=== PATIENT | male | born 1985 | race Caucasian/White ===

== ENCOUNTER 2020-04-27 20:54 | Inpatient (IN) | payer MEDICAID ==
[~2020-04-27] VITALS: Ht 172.7 cm; Wt 86.0 kg
[2020-04-28] MEDS ORDERED: levETIRAcetam 500 MG/5ML INJ IV ONE (00:20)
[2020-04-28] MEDS ORDERED: ONDANSETRON HCL 4 MG/2 ML VIAL IV ONE (02:45)
[2020-04-28] MEDS ORDERED: MORPHINE SULFATE 4 MG/ML SYR/VIAL IV ONE (02:45)
[2020-04-28] MEDS: SODIUM CHLORIDE 0.9% 1,000 ML IV SCH (02:55)
[2020-04-28] MEDS ORDERED: DOCUSATE SOD 100 MG CAP PO PRN (03:00)
[2020-04-28] MEDS ORDERED: ONDANSETRON HCL 4 MG/2 ML VIAL IV PRN (03:00)
[2020-04-28] MEDS ORDERED: LORazepam 0.5 MG TAB PO PRN (03:00)
[2020-04-28] MEDS ORDERED: HYDROcodone-ACET 5/325MG TAB PO PRN (03:00)
[2020-04-28] MEDS ORDERED: TEMAZEPAM 15 MG CAP PO PRN (03:00)
[2020-04-28 04:00] VITALS: BP 131/72
--- NOTE | 2020-04-28 04:00 | NUR ---
MS admit from ER GREY MUELLER admitted to tele/MS after SBAR received. Patient oriented to QI MILES, RN primary RN, unit, room, bed, and unit policies regarding patient care and visiting hours. Patient weighed by bedscale and encouraged to call if they need something. All questions and concerns addressed, patient verbalized understanding. Patient states pain 8/10 right hip fracture. Will medicate per md orders. Will continue to monitor.
[2020-04-28] MEDS: MORPHINE SULF INJ 2 MG/ML SYRINGE 1ML IV PRN ×3 (04:06→20:01)
--- NOTE | 2020-04-28 04:06 | NUR ---
Pain Patient states pain 8/10 on right hip. medicated per md orders. Call light within reach, will continue to monitor and reassess.
[2020-04-28 05:00] VITALS: BP 131/72
[2020-04-28] MEDS ORDERED: LEVE250T18 PO ×2 (05:27)
--- NOTE | 2020-04-28 07:26 | NUR ---
closing note endorsed care to day shift RN no sob or distress note
--- NOTE | 2020-04-28 07:30 | NUR ---
Opening Shift Note: Assumed care of patient. Patient asleep at this time. No S/S of distress/SOB or pain. Bed in lowest locked position, side rails up x 2, call light within reach. Patient instructed on POC and to call for assist PRN, will continue to monitor for changes Q1hr and PRN.
[2020-04-28 08:18] LABS: Basophils # (auto) 0 10 ^3/uL (0-0.2); Basophils % (auto) 0.5 % (0.0-2.0); Eosinophils # (auto) 0.1 10 ^3/uL (0-0.8); Eosinophils % (auto) 1.8 % (0.0-7.0); Hematocrit 41.7 % (41.0-53.0); Hemoglobin 14.3 g/dL (13.5-17.5); Lymphocytes # (auto) 0.8 10 ^3/uL (0.4-5.4); Lymphocytes % (auto) 10.3 % (10.0-50.0); Mean Corpuscular Hemoglobin 30.7 pg (28.0-32.0); Mean Corpuscular Hgb Conc. 34.2 g/dL (32.0-36.0); Mean Corpuscular Volume 89.7 fL (80.0-100.0); Monocytes # (auto) 0.5 10 ^3/uL (0-1.3); Monocytes % (auto) 6.6 % (0.0-12.0); Neutrophils # (auto) 6.5 10 ^3/uL (1.6-8.6); Neutrophils % (auto) 80.8 % (37.0-80.0); Platelet Count (auto) 123 10^3/uL (140-450); Red Blood Cells 4.65 10^6/uL (4.5-5.90); Red Cell Distribution Width 13.5 % (11.8-14.3)
[2020-04-28 08:44] LABS: Calcium 8.1 mg/dL (8.5-10.1); Potassium 3.5 mmol/L (3.5-5.1)
[2020-04-28 08:50] LABS: Albumin 3.2 g/dL (3.4-5.0); Bilirubin, Total 0.8 mg/dL (0.2-1.0); Total Protein 6.3 g/dL (6.4-8.2)
[2020-04-28 09:00] VITALS: BP 128/80
[2020-04-28 09:02] LABS: INR 1.06 (0.9-1.15); Partial Thromboplastin Time 29.3 sec (23.0-31.2)
--- NOTE | 2020-04-28 09:05 | NUR ---
covid swab collected and walked to lab.
[2020-04-28 09:30] LABS: Cholesterol 161 mg/dL (< 200); HDL Cholesterol 45 mg/dL (40-59); LDL Cholesterol 100 mg/dL (< 100); Triglycerides 92 mg/dL (< 150)
[2020-04-28 13:00] VITALS: BP 126/74
--- NOTE | 2020-04-28 18:49 | NUR ---
CLOSING NOTE: Patient resting in bed. No S/S of distress at this time. Care endorsed to NOC RN.
[2020-04-28 22:00] VITALS: BP 105/59
[2020-04-29] MEDS: SODIUM CHLORIDE 0.9% 1,000 ML IV SCH ×3 (01:13→22:42)
--- NOTE | 2020-04-29 03:23 | NUR ---
CHG bath given.
[2020-04-29 05:00] VITALS: BP 114/66
--- NOTE | 2020-04-29 07:30 | NUR ---
Opening note Assumed care of patient from NOC RN. Patient is AOx4 no signs and symptoms of distress or sob noted. Bed is in lowest locked position, call light is within reach, side rails up x2 and seizure precautions in place. Updated patient on plan of care and patient verbalized understanding. Will continue to monitor q1hr and PRN.
[2020-04-29] MEDS ORDERED: BUPIVACAINE 0.25% INJ 50ML VIAL ONE (07:37)
--- NOTE | 2020-04-29 07:55 | NUR ---
Patient off unit patient taken down to OR for procedure.
--- NOTE | 2020-04-29 08:15 | NUR ---
Patient back on unit patient brought back on unit by SCRAP HOIST OPERATORLIAM Rowland. Unable to preform procedure due to fever. Will notify attending MD. Will continue to monitor.
[2020-04-29 09:00] VITALS: BP 122/73
[2020-04-29] MEDS ORDERED: ENOXAPARIN SOD 40 MG/0.4 ML SYRINGE SC ONE (10:30)
--- NOTE | 2020-04-29 12:12 | NUR ---
SPOKE WITH FAMILY Received call from patients mother, Marylin. Her phone number is [phone].
[2020-04-29] MEDS ORDERED: OME20T PO (12:57)
[2020-04-29 13:00] VITALS: BP 122/71
[2020-04-29] MEDS ORDERED: cefTRIAXone 1GM/50ML D5W 50 ML IV ONE (13:00)
[2020-04-29 13:25] LABS: Urine Bacteria NONE SEEN /hpf (None Seen); Urine Blood Negative /uL (Negative); Urine Mucus FEW (None Seen); Urine Specific Gravity 1.031 (1.001-1.035); Urine WBC 3 /hpf (0 - 3)
[2020-04-29] MEDS: levETIRAcetam 500 MG TAB PO SCH ×2 (15:39→21:25)
[2020-04-29 17:00] VITALS: BP 145/91
--- NOTE | 2020-04-29 17:00 | NUR ---
Cooling Measures applied. Patient currently has temp of 103.0 , cooling measures in place. Will continue to monitor.
[2020-04-29] MEDS: ACETAMINOPHEN 325 MG TAB PO PRN (17:38)
--- NOTE | 2020-04-29 18:38 | NUR ---
Temperature reassessment Temperature is now 99.9. Cooling measures in place, will continue to monitor.
--- NOTE | 2020-04-29 19:15 | NUR ---
End of shift note Endorsed care to noc RN. No s/s of distress or SOB noted.
--- NOTE | 2020-04-29 19:30 | NUR ---
Opening Shift Note Assumed care of patient, awake and alert. No S/S of distress/SOB or pain. Instructed on POC and to call for assist PRN, will continue to monitor for changes Q1hr and PRN.
[2020-04-29 22:00] VITALS: BP 121/66
[2020-04-30 05:00] VITALS: BP 138/79
[2020-04-30] MEDS: ACETAMINOPHEN 325 MG TAB PO PRN ×2 (05:24→19:34)
[2020-04-30 09:00] VITALS: BP 107/65
[2020-04-30 09:16] LABS: Basophils # (auto) 0 10 ^3/uL (0-0.2); Basophils % (auto) 0.4 % (0.0-2.0); Eosinophils # (auto) 0.1 10 ^3/uL (0-0.8); Eosinophils % (auto) 1.7 % (0.0-7.0); Hematocrit 34.3 % (41.0-53.0); Hemoglobin 11.8 g/dL (13.5-17.5); Lymphocytes # (auto) 1.3 10 ^3/uL (0.4-5.4); Lymphocytes % (auto) 18.8 % (10.0-50.0); Mean Corpuscular Hemoglobin 30.8 pg (28.0-32.0); Mean Corpuscular Hgb Conc. 34.4 g/dL (32.0-36.0); Mean Corpuscular Volume 89.5 fL (80.0-100.0); Monocytes # (auto) 0.6 10 ^3/uL (0-1.3); Monocytes % (auto) 9.2 % (0.0-12.0); Neutrophils # (auto) 4.8 10 ^3/uL (1.6-8.6); Neutrophils % (auto) 69.9 % (37.0-80.0); Platelet Count (auto) 110 10^3/uL (140-450); Red Blood Cells 3.83 10^6/uL (4.5-5.90); Red Cell Distribution Width 13.1 % (11.8-14.3); White Blood Cell 6.8 10^3/uL (4.4-10.8)
--- NOTE | 2020-04-30 09:30 | NUR ---
IV removal IV DC'd with clean sterile technique, catheter fully intact. Pressure dressing applied to site. Patient tolerated well. NOTE: right hand leaking and painful
[2020-04-30 09:38] LABS: Albumin 2.4 g/dL (3.4-5.0); BUN/Creatinine Ratio 13.6; Calcium 7.7 mg/dL (8.5-10.1); Potassium 3.3 mmol/L (3.5-5.1)
[2020-04-30 09:41] LABS: Bilirubin, Total 0.8 mg/dL (0.2-1.0); Total Protein 5.8 g/dL (6.4-8.2)
--- NOTE | 2020-04-30 09:50 | NUR ---
IV insertion IV access obtained, via clean sterile technique by inserting 22 gauge catheter at left forearm after 1 attempt. IV secured properly. No trauma to site. Patient tolerated well.
[2020-04-30] MEDS ORDERED: POTASSIUM CHLORIDE 20 MEQ, LIDOCAINE 1% (LOCAL ANESTH.) 2 ML in SODIUM CHL 0.9% 100 ML IV ONE (10:00)
[2020-04-30] MEDS ORDERED: POTASSIUM EFFERVESENT TAB 25 MEQ PO ONE (10:00)
[2020-04-30] MEDS ORDERED: ENOXAPARIN SOD 40 MG/0.4 ML SYRINGE SC SCH (10:00)
[2020-04-30] MEDS: cefTRIAXone 1GM/50ML D5W 50 ML IV SCH (10:17)
[2020-04-30] MEDS: levETIRAcetam 500 MG TAB PO SCH ×2 (10:18→21:01)
[2020-04-30] MEDS ORDERED: levoFLOXacin 750MG 150 ML IV ONE (12:30)
[2020-04-30 13:00] VITALS: BP 127/81
[2020-04-30 14:09] LABS: CRP High Sensitivity 16.4 mg/dL (< 0.3)
--- NOTE | 2020-04-30 14:18 | NUR ---
COVID SWAB TAKEN TO LAB
--- NOTE | 2020-04-30 15:11 | NUR ---
SPOKE WITH DR. MARIE OFFICE OKAY TO FEED PATIENT, RESUME NPO STATUS AFTER MIDNIGHT TONIGHT. PROCEDURE WILL BE ON SCHEDULE FOR TOMORROW.
[2020-04-30 17:00] VITALS: BP 128/67
[2020-04-30] MEDS: MORPHINE SULF INJ 2 MG/ML SYRINGE 1ML IV PRN (17:51)
--- NOTE | 2020-04-30 19:34 | NUR ---
PATIENT ORAL TEMP 101.4 PATIENT MEDICATED PER MD ORDERS, COOLING MEASURES IN PLACE. WILL ENDORSE CARE TO MULTIPLE SLIDE OPERATOR RN.
--- NOTE | 2020-04-30 20:10 | NUR ---
Patient refused to have back assessed. Educated pt on the importance of completing a full physical skin assessment, pt verbally acknowledge education given, and still refuses to turn and have back assessed. pt is AOX4. GLASS UNLOADING EQUIPMENT TENDER present.
[2020-04-30 22:00] VITALS: BP 108/66
[2020-05-01 05:00] VITALS: BP 123/63
[2020-05-01 06:05] LABS: Basophils # (auto) 0 10 ^3/uL (0-0.2); Basophils % (auto) 0.3 % (0.0-2.0); Eosinophils # (auto) 0.2 10 ^3/uL (0-0.8); Eosinophils % (auto) 3.1 % (0.0-7.0); Hematocrit 32.5 % (41.0-53.0); Hemoglobin 11.2 g/dL (13.5-17.5); Lymphocytes % (auto) 16.6 % (10.0-50.0); Mean Corpuscular Hemoglobin 30.8 pg (28.0-32.0); Mean Corpuscular Hgb Conc. 34.4 g/dL (32.0-36.0); Mean Corpuscular Volume 89.4 fL (80.0-100.0); Monocytes # (auto) 0.7 10 ^3/uL (0-1.3); Monocytes % (auto) 11.4 % (0.0-12.0); Neutrophils % (auto) 68.6 % (37.0-80.0); Platelet Count (auto) 118 10^3/uL (140-450); Red Blood Cells 3.64 10^6/uL (4.5-5.90); White Blood Cell 5.8 10^3/uL (4.4-10.8)
[2020-05-01] MEDS: MORPHINE SULF INJ 2 MG/ML SYRINGE 1ML IV PRN (06:06)
[2020-05-01 06:26] LABS: Potassium 3.4 mmol/L (3.5-5.1)
[2020-05-01 06:33] LABS: Albumin 2.4 g/dL (3.4-5.0); BUN/Creatinine Ratio 21.3; Bilirubin, Total 0.6 mg/dL (0.2-1.0); Calcium 8.1 mg/dL (8.5-10.1); Magnesium 2.2 mg/dL (1.6-2.6); Total Protein 5.7 g/dL (6.4-8.2)
--- NOTE | 2020-05-01 07:25 | NUR ---
Opening Shift Note Assumed care of patient, awake and alert. No S/S of distress/SOB or pain. Updated on POC and instructed to call for assistance PRN. Bed locked in lowest position, side rails up x2, call light within reach. Will continue to monitor for changes Q1hr and PRN. Addendum: 05/01/20 at 0943 by Talita Singletary RN BED ALARM ON FOR SAFETY.
[2020-05-01] MEDS: cefTRIAXone 1GM/50ML D5W 50 ML IV SCH (08:38)
[2020-05-01] MEDS: ACETAMINOPHEN 325 MG TAB PO PRN ×2 (08:38→20:04)
[2020-05-01 09:00] VITALS: BP 120/72
[2020-05-01] MEDS: levETIRAcetam 500 MG TAB PO SCH ×2 (09:17→22:08)
[2020-05-01] MEDS: levoFLOXacin 500MG 100 ML IV SCH (09:18)
[2020-05-01 13:00] VITALS: BP 119/78
[2020-05-01] MEDS ORDERED: MEPERIDINE HCL (50 MG/ML) 1 ML VIAL ONE (14:21)
[2020-05-01] MEDS ORDERED: fentaNYL CITRATE 100 MCG/2 ML VL ONE (14:21)
[2020-05-01] MEDS ORDERED: MIDAZOLAM HCL 1MG/1ML-2 ML VIAL ONE (14:22)
[2020-05-01] MEDS ORDERED: SUCCINYLCHOLINE CHLORIDE 20 MG/ML 10ML VIAL IV ONE (14:28)
--- NOTE | 2020-05-01 14:35 | NUR ---
PATIENT TAKEN TO OR FOR PROCEDURE NO DISTRESS NOTED.
[2020-05-01] MEDS ORDERED: DexAMETHasone SOD PHOS 10MG/1ML VIAL INJ ONE (14:38)
[2020-05-01] MEDS ORDERED: PROPOFOL 10 MG/ML 20 ML IV ONE (15:04)
[2020-05-01] MEDS ORDERED: ceFAZolin 1GM/50ML 50 ML IV ONE (15:05)
--- NOTE | 2020-05-01 15:21 | NUR ---
Nutrition Assessment Notes please see attached link fro complete assessment Est energy needs BW [id number] kcal (23-25 kcal/kg BW), Est protein needs: 89-97g (1.0-1.1 g/kg BW). Will reassess prn Addendum: 05/01/20 at [address] Amended: Links added.
[2020-05-01] MEDS: BUPIVACAINE W/ EPINEPH 0.25% INJ 50ML MDV ONE ×2 (15:22→15:38)
--- NOTE | 2020-05-01 15:22 | NUR ---
assessment Patient is a 35 year old male who had brain surgery in 2011. Per patients mother Marylin prior to admission patient lived home with her and needed assistance. Per Marylin patient has a fww and a cane for home use. Marylin informed me patient was helping bring in grocery bags and fell fracturing his hip. Per Marylin she refuses SNF. Per Marylin patient will return home on discharge and patient will need home health for PT. Patients PCP is Dr Call. I informed Marylin I will continue to monitor and follow up as appropriate. Marylin verbalized understanding. Addendum: 05/01/20 at 1529 by Sunni KO Amended: Links added.
[2020-05-01] MEDS: LACTATED RINGER'S 1,000 ML IV SCH ×2 (16:58→22:23)
[2020-05-01 17:00] VITALS: BP 116/72
--- NOTE | 2020-05-01 17:00 | NUR ---
PATIENT BACK TO ROOM FOLLOWING PROCEDURE REPORT RECEIVED FROM LIAM HORNER. RIGHT HIP INCISION SITE ACCESSED, DRESSING IS CLEAN, DRY, AND INTACT. NO S/S OF DISTRESS OR SOB, PATIENT DENIES PAIN. PATIENT CONNECTED TO 5L O2 VIA OXYMIZER. VITALS STABLE AT THIS TIME. BED IS LOCKED IN LOWEST POSITION, SIDE RAILS UP X2, CALL LIGHT WITHIN REACH, BED ALARM ON. WILL CONTINUE TO MONITOR FOR CHANGES.
[2020-05-01] MEDS: ceFAZolin 1GM/50ML 50 ML IV SCH ×2 (17:30→22:09)
[2020-05-01 21:50] VITALS: BP 120/65
[2020-05-02] MEDS: ceFAZolin 1GM/50ML 50 ML IV SCH (03:43)
[2020-05-02 05:00] VITALS: BP 120/76
[2020-05-02 06:18] LABS: Hematocrit 31.3 % (41.0-53.0); Hemoglobin 10.7 g/dL (13.5-17.5)
[2020-05-02 06:50] LABS: Calcium 8.4 mg/dL (8.5-10.1); Potassium 3.9 mmol/L (3.5-5.1)
[2020-05-02 06:56] LABS: Albumin 2.5 g/dL (3.4-5.0); BUN/Creatinine Ratio 18.2; Bilirubin, Total 0.5 mg/dL (0.2-1.0)
--- NOTE | 2020-05-02 07:25 | NUR ---
Opening Shift Note Assumed care of patient, awake and alert. No S/S of distress/SOB or pain. Updated on POC and instructed to call for assistance PRN, patient verbalized understanding. Bed locked in lowest position , side rail up x2 , call light within reach. Safety precautions in place. Will continue to monitor for changes Q1hr and PRN.
[2020-05-02 09:00] VITALS: BP 123/76
[2020-05-02] MEDS: cefTRIAXone 1GM/50ML D5W 50 ML IV SCH (09:02)
[2020-05-02] MEDS: ENOXAPARIN SOD 40 MG/0.4 ML SYRINGE SC SCH (09:03)
[2020-05-02] MEDS: levETIRAcetam 500 MG TAB PO SCH ×2 (09:04→22:17)
[2020-05-02] MEDS: MORPHINE SULF INJ 2 MG/ML SYRINGE 1ML IV PRN (09:04)
[2020-05-02] MEDS: levoFLOXacin 500MG 100 ML IV SCH (09:04)
[2020-05-02 13:00] VITALS: BP 109/65
--- NOTE | 2020-05-02 16:23 | NUR ---
re-assessment Per consult dc planning. Patient will be going home with family on discharge. Patient has a fww and a cane for home use. Patient will need a consult for home health for PT. Addendum: 05/02/20 at 1630 by Sunni Hernandez Amended: Links added.
[2020-05-02 17:55] VITALS: BP 113/61
--- NOTE | 2020-05-02 19:15 | NUR ---
Opening Shift Note Assumed care of patient, awake and alert. No S/S of distress/SOB or pain. Instructed on POC and to call for assist PRN, will continue to monitor for changes Q1hr and PRN. Assisted patient with use of bedpan. Side rails up x 2, HOB elevated at least 30 degrees and call light is within reach.
[2020-05-02 22:00] VITALS: BP 115/62
--- NOTE | 2020-05-03 07:10 | NUR ---
CLOSING SHIFT NOTE ENDORSED CARE TO DAY SHIFT RN
[2020-05-03 07:45] LABS: Hematocrit 28.1 % (41.0-53.0); Hemoglobin 9.8 g/dL (13.5-17.5)
--- NOTE | 2020-05-03 07:45 | NUR ---
Opening Note Assumed pt care from NOC RN. Pt is a/ox4, mild delay noted. PT is currently sitting upright in bed with no complaints at this time. Pt is currently on 4L via NC. Discussed POC with pt; pt verbalized understanding. Dressing to R hip is clean, dry and intact. SCd are on. Safety measures maintained with call light within reach, bed in lowest position and side rails up. Will continue to monitor for changes.
[2020-05-03] MEDS: cefTRIAXone 1GM/50ML D5W 50 ML IV SCH (08:00)
[2020-05-03 09:00] VITALS: BP 100/59
[2020-05-03] MEDS: levoFLOXacin 500MG 100 ML IV SCH (09:17)
[2020-05-03] MEDS: levETIRAcetam 500 MG TAB PO SCH ×2 (09:17→22:21)
[2020-05-03] MEDS: ENOXAPARIN SOD 40 MG/0.4 ML SYRINGE SC SCH (09:17)
[2020-05-03] MEDS: MORPHINE SULF INJ 2 MG/ML SYRINGE 1ML IV PRN (09:17)
[2020-05-03] MEDS: ACETAMINOPHEN 325 MG TAB PO PRN ×2 (09:30→15:22)
--- NOTE | 2020-05-03 10:20 | NUR ---
Dr Lopez at Bedside MD to see pt. Aware of pt's elevated temp. No new orders at this time. Will continue to monitor for changes.
--- NOTE | 2020-05-03 11:18 | NUR ---
Elevated Temp Reassessed pt's elevated temp. Current temp is 100.4; pt already has Tylenol onboard. Will implement cooling measures and continue to monitor. Addendum: 05/03/20 at 1531 by IRVIN COREAS RN RN Reassessed temperature, currently 100.6. Provided available PRNS and cooling measures. Will continue to monitor and reassess.
[2020-05-03 13:13] VITALS: BP 96/50
--- NOTE | 2020-05-03 16:17 | NUR ---
D/C Planning Per social service consult for home health physical therapy. faxed clinica information to [facility]. per Renetta isaacs [facility] [phone] patient has been accepted and service to start within 24-48hrs upon d/c day.
--- NOTE | 2020-05-03 16:26 | NUR ---
Obtain authorization from [facility] [id number]. Addendum: 05/03/20 at 1627 by BREE [facility].
[2020-05-03 17:40] VITALS: BP 97/52
--- NOTE | 2020-05-03 19:15 | NUR ---
Opening Shift Note Assumed care of patient, awake and alert. No S/S of distress/SOB or pain. Instructed on POC and to call for assist PRN, will continue to monitor for changes Q1hr and PRN. Assisted patient with ADLs. Seizure precautions in place. Bed locked in lowest position, HOB elevated at least 30 degrees and call light is within reach.
--- NOTE | 2020-05-03 21:41 | NUR ---
COOLING MEASURES APPLIED ICE PACKS TO BOTH OF PATIENT'S UNDER ARMS
[2020-05-03 22:00] VITALS: BP 106/60
--- NOTE | 2020-05-03 22:15 | NUR ---
TEMPERATURE CHECK CHECKED TEMPERATURE ORALLY. TEMPERATURE AT 97.7 DEGREES FAHRENHEIT.
--- NOTE | 2020-05-04 01:00 | NUR ---
TEMPERATURE CHECK CHECKED TEMPERATURE ORALLY. TEMPERATURE AT 97.5 DEGREES FAHRENHEIT.
[2020-05-04] MEDS: ACETAMINOPHEN 325 MG TAB PO PRN (04:22)
[2020-05-04 05:00] VITALS: BP 114/74
--- NOTE | 2020-05-04 05:00 | NUR ---
TEMPERATURE CHECK CHECKED TEMPERATURE ORALLY. TEMPERATURE AT 99.9 DEGREES FAHRENHEIT. COOLING MEASURES APPLIED AND TYLENOL PRN ALREADY ADMINISTERED.
--- NOTE | 2020-05-04 07:02 | NUR ---
CLOSING NOTE ENDORSED CARE TO DAY SHIFT RN
[2020-05-04 07:46] LABS: Hematocrit 27.9 % (41.0-53.0); Hemoglobin 9.5 g/dL (13.5-17.5)
--- NOTE | 2020-05-04 07:50 | NUR ---
Opening Note Assume pt care from NOC RN. Pt is a/ox4 with no s/s of distress or SOB. Pty is currently sitting upright in bed eating breakfast with no complaints. Discussed POC with pt; pt verbalized understanding. Cooling measures maintained due to elevated temp. Safety measures maintained with call light within reach, bed in lowest position and side rails up. Will continue to monitor for changes.
--- NOTE | 2020-05-04 08:21 | NUR ---
Lab; COVID Lab updated on pt's COVID result, per lab, 2nd test is negative. Notified Charge
[2020-05-04] MEDS: cefTRIAXone 1GM/50ML D5W 50 ML IV SCH (08:32)
[2020-05-04 09:00] VITALS: BP 117/70
[2020-05-04] MEDS: levETIRAcetam 500 MG TAB PO SCH ×2 (09:05→21:57)
[2020-05-04] MEDS: levoFLOXacin 500MG 100 ML IV SCH (09:05)
[2020-05-04] MEDS: ENOXAPARIN SOD 40 MG/0.4 ML SYRINGE SC SCH (09:05)
--- NOTE | 2020-05-04 10:19 | NUR ---
Pt Off Unit for CT Pt taken off unit via wheelchair for CT. Pt is a/ox4 with no s/s of distress. Addendum: 05/04/20 at 1111 by IRVIN COREAS RN RN Pt back on unit.
[2020-05-04 13:03] VITALS: BP 116/63
--- NOTE | 2020-05-04 14:25 | NUR ---
Nutrition Followup Notes Pt wt is 89.3 kg Unable to speak to pt d/t pt is being ruled out for COVID. Pt is with a Regular diet, appetite is poor aeb 50% PO intake of one meal per day over a 2-day time period per RN doc. Est energy needs BW [id number] kcal (23-25 kcal/kg BW), Est protein needs: 89-97g (1.0-1.1 g/kg BW). Will reassess prn LABS: Ca 8.4 L, Alb 2.5 L GI: Pt had 1 BM on 05/04 per RN doc BS: 21 low risk. Refer to wound assessment report for full details. PES: Altered nutrition related lab values r.t current chronic medical condition aeb hypocalcemia, mod hypoalb Comments 1) Continue current plan of care
[2020-05-04] MEDS ORDERED: POTASSIUM CHL 10 Meq TABLET PO ONE (16:15)
[2020-05-04] MEDS ORDERED: FUROSEMIDE 20 MG/2 ML VIAL IV ONE (16:15)
[2020-05-04] MEDS: PIPERACILLIN-TAZOB 3.375GM 100 ML IV SCH ×2 (16:39→23:23)
[2020-05-04] MEDS: FERROUS SULFATE 325 MG TAB PO SCH (16:40)
--- NOTE | 2020-05-04 16:49 | NUR ---
DR PHAN AT BEDSIDE MD TO SEE PT. NEW ORDERS GIVEN. WILL IMPLEMENT AND CONTINUE TO MONITOR.
[2020-05-04 17:00] VITALS: BP 101/54
--- NOTE | 2020-05-04 17:07 | NUR ---
COVID SWAB WALKED TO LAB
[2020-05-04 17:35] LABS: Basophils # (auto) 0.1 10 ^3/uL (0-0.2); Basophils % (auto) 1.1 % (0.0-2.0); Eosinophils # (auto) 0.1 10 ^3/uL (0-0.8); Eosinophils % (auto) 1.9 % (0.0-7.0); Hematocrit 29.9 % (41.0-53.0); Hemoglobin 10.1 g/dL (13.5-17.5); Lymphocytes # (auto) 1.4 10 ^3/uL (0.4-5.4); Lymphocytes % (auto) 21.3 % (10.0-50.0); Mean Corpuscular Hemoglobin 30.5 pg (28.0-32.0); Mean Corpuscular Hgb Conc. 33.6 g/dL (32.0-36.0); Mean Corpuscular Volume 90.6 fL (80.0-100.0); Monocytes # (auto) 0.7 10 ^3/uL (0-1.3); Monocytes % (auto) 9.8 % (0.0-12.0); Neutrophils # (auto) 4.4 10 ^3/uL (1.6-8.6); Neutrophils % (auto) 65.9 % (37.0-80.0); Nucleated Red Blood Cells % 0.1 %; Platelet Count (auto) 234 10^3/uL (140-450); Red Cell Distribution Width 13.4 % (11.8-14.3); White Blood Cell 6.7 10^3/uL (4.4-10.8)
[2020-05-04 21:47] VITALS: BP 96/55
[2020-05-04] MEDS: ENOXAPARIN SOD 100 MG/1 ML SYRINGE SC SCH (21:57)
--- NOTE | 2020-05-04 23:00 | NUR ---
TEMPERATURE CHECK TEMPERATURE AT 99.1 DEGREES FAHRENHEIT.
--- NOTE | 2020-05-05 | NUR ---
TEMPERATURE CHECK TEMPERATURE AT 99.1 DEGREES FAHRENHEIT. COOLING MEASURES APPLIED AT THIS TIME WITH THE USE OF ICE PACKS AT BOTH ARM PITS
[2020-05-05 04:52] VITALS: BP 115/69
--- NOTE | 2020-05-05 05:17 | NUR ---
SPUTUM SAMPLE SPUTUM SAMPLE COLLECTED AND SENT TO LAB
[2020-05-05] MEDS: PIPERACILLIN-TAZOB 3.375GM 100 ML IV SCH ×4 (05:19→23:23)
[2020-05-05 07:11] LABS: Basophils # (auto) 0 10 ^3/uL (0-0.2); Basophils % (auto) 0.3 % (0.0-2.0); Eosinophils # (auto) 0.1 10 ^3/uL (0-0.8); Eosinophils % (auto) 1.9 % (0.0-7.0); Hematocrit 28.8 % (41.0-53.0); Hemoglobin 9.9 g/dL (13.5-17.5); Lymphocytes # (auto) 1.8 10 ^3/uL (0.4-5.4); Lymphocytes % (auto) 28.8 % (10.0-50.0); Mean Corpuscular Hemoglobin 30.6 pg (28.0-32.0); Mean Corpuscular Hgb Conc. 34.5 g/dL (32.0-36.0); Mean Corpuscular Volume 88.8 fL (80.0-100.0); Monocytes # (auto) 0.5 10 ^3/uL (0-1.3); Monocytes % (auto) 8.4 % (0.0-12.0); Neutrophils # (auto) 3.7 10 ^3/uL (1.6-8.6); Neutrophils % (auto) 60.6 % (37.0-80.0); Nucleated Red Blood Cells % 0.1 %; Platelet Count (auto) 240 10^3/uL (140-450); Red Blood Cells 3.25 10^6/uL (4.5-5.90); Red Cell Distribution Width 13.2 % (11.8-14.3); White Blood Cell 6.2 10^3/uL (4.4-10.8)
--- NOTE | 2020-05-05 07:34 | NUR ---
CLOSING NOTE ENDORSED CARE TO DAY SHIFT RN
--- NOTE | 2020-05-05 08:03 | NUR ---
OPENING SHIFT NOTE Assumed Care of pt. Pt is awake and A&Ox4 with no s/s of distress or SOB. Reviewed POC with pt. Call light within reach, bed in lowest position and side rails up. Will continue to monitor for changes Q1HR.
[2020-05-05 08:40] LABS: Anion Gap 5 (5-15); Carbon Dioxide 31 mmol/L (21-32); Chloride 103 mmol/L (98-107); Sodium 139 mmol/L (136-145)
[2020-05-05 08:41] LABS: BUN/Creatinine Ratio 13.8; Blood Urea Nitrogen 12 mg/dL (7-18); CRP High Sensitivity 8.9 mg/dL (< 0.3); Calcium 7.9 mg/dL (8.5-10.1); GFR African American 130 mL/min; GFR Non-African American 107 mL/min; Glucose 81 mg/dL (74-106); Lactate Dehydrogenase 227 U/L (87-241)
[2020-05-05 09:35] VITALS: BP 120/72
[2020-05-05] MEDS: FUROSEMIDE 20 MG/2 ML VIAL IV SCH (09:46)
[2020-05-05] MEDS: levETIRAcetam 500 MG TAB PO SCH ×2 (09:47→21:35)
[2020-05-05] MEDS: ENOXAPARIN SOD 100 MG/1 ML SYRINGE SC SCH ×2 (09:47→21:35)
[2020-05-05] MEDS: ASCORBIC ACID 500 MG TAB PO SCH (09:47)
[2020-05-05] MEDS: FERROUS SULFATE 325 MG TAB PO SCH ×2 (09:47→17:48)
[2020-05-05] MEDS: POTASSIUM CHL 10 Meq TABLET PO SCH (09:48)
[2020-05-05] MEDS: ZINC SULFATE 220mg CAP or TAB PO SCH (10:00)
[2020-05-05 12:50] VITALS: BP 87/53
[2020-05-05] MEDS ORDERED: SODIUM CHLORIDE 0.9% 500 ML IV ONE (13:30)
[2020-05-05] MEDS ORDERED: POTASSIUM EFFERVESENT TAB 25 MEQ PO ONE (15:15)
[2020-05-05 16:33] VITALS: BP 93/62
--- NOTE | 2020-05-05 20:00 | NUR ---
Opening Shift Note Assumed care of patient, awake and alert. No S/S of distress/SOB or pain. Instructed on POC and to call for assist PRN, will continue to monitor for changes Q1hr and PRN.Dressing in the right hip dry and intact. SCD put on bilateral legs.
[2020-05-06 05:00] VITALS: BP 113/67
[2020-05-06] MEDS: PIPERACILLIN-TAZOB 3.375GM 100 ML IV SCH ×4 (05:31→23:26)
[2020-05-06 06:40] LABS: Basophils # (auto) 0 10 ^3/uL (0-0.2); Basophils % (auto) 0.5 % (0.0-2.0); Eosinophils # (auto) 0.1 10 ^3/uL (0-0.8); Eosinophils % (auto) 2.3 % (0.0-7.0); Hematocrit 27.6 % (41.0-53.0); Hemoglobin 9.5 g/dL (13.5-17.5); Lymphocytes # (auto) 1.9 10 ^3/uL (0.4-5.4); Lymphocytes % (auto) 30.2 % (10.0-50.0); Mean Corpuscular Hemoglobin 30.8 pg (28.0-32.0); Mean Corpuscular Hgb Conc. 34.2 g/dL (32.0-36.0); Mean Corpuscular Volume 90.2 fL (80.0-100.0); Monocytes # (auto) 0.6 10 ^3/uL (0-1.3); Monocytes % (auto) 9.7 % (0.0-12.0); Neutrophils # (auto) 3.6 10 ^3/uL (1.6-8.6); Neutrophils % (auto) 57.3 % (37.0-80.0); Nucleated Red Blood Cells % 0.1 %; Platelet Count (auto) 265 10^3/uL (140-450); Red Blood Cells 3.07 10^6/uL (4.5-5.90); Red Cell Distribution Width 13.3 % (11.8-14.3); White Blood Cell 6.4 10^3/uL (4.4-10.8)
[2020-05-06 07:00] LABS: Albumin 2.4 g/dL (3.4-5.0); Calcium 8.2 mg/dL (8.5-10.1); Potassium 3.5 mmol/L (3.5-5.1)
[2020-05-06 07:04] LABS: BUN/Creatinine Ratio 15.5; Bilirubin, Total 0.8 mg/dL (0.2-1.0); Total Protein 5.4 g/dL (6.4-8.2)
--- NOTE | 2020-05-06 07:20 | NUR ---
Report given to Lewis Steward, patient is resting, dressing dry and intact in the right hip.
--- NOTE | 2020-05-06 08:13 | NUR ---
OPENING SHIFT NOTE Resumed Care of pt. Pt is awake and A&Ox4. PT is not aware of place or situation. No s/s of distress or SOB. Reviewed POC with pt. Call light within reach, bed in lowest position and side rails up. Will continue to monitor for changes Q1HR.
[2020-05-06 08:47] VITALS: BP 111/70
[2020-05-06] MEDS: FERROUS SULFATE 325 MG TAB PO SCH ×2 (09:14→19:35)
[2020-05-06] MEDS: levETIRAcetam 500 MG TAB PO SCH ×2 (10:28→21:08)
[2020-05-06] MEDS: FUROSEMIDE 20 MG/2 ML VIAL IV SCH (10:28)
[2020-05-06] MEDS: ZINC SULFATE 220mg CAP or TAB PO SCH (10:29)
[2020-05-06] MEDS: ENOXAPARIN SOD 100 MG/1 ML SYRINGE SC SCH ×2 (10:29→21:07)
[2020-05-06] MEDS: ASCORBIC ACID 500 MG TAB PO SCH (10:29)
[2020-05-06] MEDS: POTASSIUM CHL 10 Meq TABLET PO SCH (10:29)
[2020-05-06 13:00] VITALS: BP 95/57
[2020-05-06 16:57] VITALS: BP 109/59
[2020-05-06] MEDS: Ensure HIGH Protein Chocolate 8oz Bottle PO SCH (19:35)
[2020-05-06 21:57] VITALS: BP 90/52
[2020-05-07 05:00] VITALS: BP 114/76
[2020-05-07] MEDS: PIPERACILLIN-TAZOB 3.375GM 100 ML IV SCH ×3 (05:34→17:31)
[2020-05-07 06:03] LABS: BUN/Creatinine Ratio 17.6; Calcium 8.5 mg/dL (8.5-10.1); Potassium 3.8 mmol/L (3.5-5.1)
[2020-05-07 06:21] LABS: Basophils # (auto) 0 10 ^3/uL (0-0.2); Basophils % (auto) 0.4 % (0.0-2.0); Eosinophils # (auto) 0.2 10 ^3/uL (0-0.8); Eosinophils % (auto) 2.2 % (0.0-7.0); Hematocrit 29.5 % (41.0-53.0); Hemoglobin 9.9 g/dL (13.5-17.5); Lymphocytes # (auto) 1.7 10 ^3/uL (0.4-5.4); Lymphocytes % (auto) 21.3 % (10.0-50.0); Mean Corpuscular Hemoglobin 30.3 pg (28.0-32.0); Mean Corpuscular Hgb Conc. 33.5 g/dL (32.0-36.0); Mean Corpuscular Volume 90.6 fL (80.0-100.0); Monocytes # (auto) 0.7 10 ^3/uL (0-1.3); Monocytes % (auto) 8.6 % (0.0-12.0); Neutrophils # (auto) 5.5 10 ^3/uL (1.6-8.6); Neutrophils % (auto) 67.5 % (37.0-80.0); Nucleated Red Blood Cells % 0.1 %; Platelet Count (auto) 322 10^3/uL (140-450); Red Blood Cells 3.25 10^6/uL (4.5-5.90); Red Cell Distribution Width 13.5 % (11.8-14.3); White Blood Cell 8.2 10^3/uL (4.4-10.8)
--- NOTE | 2020-05-07 07:55 | NUR ---
Report received from LIAM Encinas Patient resting in bed with even and unlabored respirations, no distress noted. Instructed patient on POC, fall precautions and to call for assistance as needed. Patient verbalized understanding. Fall precautions in place with call light within reach.
[2020-05-07] MEDS: Ensure HIGH Protein Chocolate 8oz Bottle PO SCH ×3 (08:00→17:32)
--- NOTE | 2020-05-07 08:45 | NUR ---
Received pt resting in bed, call light within reach, rt hip aquaseal dressing clean and dry, pt denies any pain or discomfort at this time.
--- NOTE | 2020-05-07 08:45 | NUR ---
Care endorsed to LIAM Collins.
--- NOTE | 2020-05-07 08:55 | NUR ---
Report given to Lewis Collins, patient is resting no distress.
[2020-05-07 09:00] VITALS: BP 102/60
[2020-05-07] MEDS: FERROUS SULFATE 325 MG TAB PO SCH ×2 (09:12→17:32)
[2020-05-07] MEDS: ASCORBIC ACID 500 MG TAB PO SCH (09:12)
[2020-05-07] MEDS: POTASSIUM CHL 10 Meq TABLET PO SCH (09:12)
[2020-05-07] MEDS: levETIRAcetam 500 MG TAB PO SCH ×2 (09:12→21:59)
[2020-05-07] MEDS: FUROSEMIDE 20 MG/2 ML VIAL IV SCH (09:13)
[2020-05-07] MEDS: ZINC SULFATE 220mg CAP or TAB PO SCH (09:13)
[2020-05-07] MEDS: ENOXAPARIN SOD 100 MG/1 ML SYRINGE SC SCH (09:13)
--- NOTE | 2020-05-07 11:10 | NUR ---
Dr. Jacobs/ hammerer tab at bed side to see pt, doctor discussed the plan of care with pt.
[2020-05-07 13:00] VITALS: BP 101/64
--- NOTE | 2020-05-07 14:27 | NUR ---
Nutrition Followup Notes Pt wt is 88.1 kg Pt was alert and oriented at time of rounds. Pt is covid negative x 3 test per RN note. Pt reports appetite is good, and denies GI issues. Pt has a regular diet with 83% po intake x 2 days per RN note. Pt also with Ensure HP TID, pt reports drinking Ensure HP when given them. Est energy needs BW [id number] kcal (23-25 kcal/kg BW), Est protein needs: 89-97g (1.0-1.1 g/kg BW). Will reassess prn LABS: Alb 2.4L GI: Pt had 1 BM on 05/07 per RN doc BS: 19 low risk. Refer to wound assessment report for full details. PES: Altered nutrition related lab values r.t current chronic medical condition aeb hypocalcemia, mod hypoalb Comments 1) Continue current plan of care Expected outcomes: pt po intake >75% pt to maintain wt while in hospital f/u 3-5 days
[2020-05-07 17:00] VITALS: BP 110/68
--- NOTE | 2020-05-07 17:32 | NUR ---
pt re-educated to turn and reposition every two hours to decrease the risk for pressure sore. Pt inform that he has redness to lt buttocks.
--- NOTE | 2020-05-07 19:47 | NUR ---
Opening Shift Note Received report and assumed care of patient. Patient is awake and alert. No signs or symptoms of distress noted. Instructed patient on plan of care and to call for assistance as needed. Provided patient education regarding turning and incentive spirometer. Will continue to monitor.
[2020-05-07 21:52] VITALS: BP 94/56
[2020-05-07] MEDS: ACETAMINOPHEN 325 MG TAB PO PRN (22:00)
--- NOTE | 2020-05-07 23:00 | NUR ---
Fever Patient's temperature 100.6. Initiated cooling measures and administered Tylenol per MD order. Temperature recheck is 99.8. Will continue to monitor.
[2020-05-08] MEDS: PIPERACILLIN-TAZOB 3.375GM 100 ML IV SCH ×5 (00:05→23:59)
--- NOTE | 2020-05-08 01:01 | NUR ---
Temperature Patient's temperature is 98.6. No signs or symptoms of distress noted. Will continue to monitor.
[2020-05-08 04:52] VITALS: BP 93/64
--- NOTE | 2020-05-08 08:00 | NUR ---
OPENING SHIFT NOTE ASSUMED CARE OF PATIENT AWAKE AND ALERT. NO S/S OF DISTRESS NOTED OR COMPLAINTS OF PAIN. PATIENT UPDATED ON POC FOR THE DAY AND ALL QUESTIONS ANSWERED. BED IS IN LOWEST, LOCKED POSITION WITH SIDE RAILS UP X2 AND CALL LIGHT WITHIN REACH. WILL CONTINUE TO MONITOR Q1H AND PRN.
[2020-05-08] MEDS: ZINC SULFATE 220mg CAP or TAB PO SCH (10:13)
[2020-05-08] MEDS: FERROUS SULFATE 325 MG TAB PO SCH ×2 (10:13→17:52)
[2020-05-08] MEDS: Ensure HIGH Protein Chocolate 8oz Bottle PO SCH ×3 (10:13→17:52)
[2020-05-08] MEDS: ENOXAPARIN SOD 100 MG/1 ML SYRINGE SC SCH (10:14)
[2020-05-08] MEDS: ASCORBIC ACID 500 MG TAB PO SCH (10:14)
[2020-05-08] MEDS: levETIRAcetam 500 MG TAB PO SCH ×2 (10:14→21:53)
[2020-05-08 22:00] VITALS: BP 81/54
[2020-05-09 05:00] VITALS: BP 92/54
[2020-05-09] MEDS: PIPERACILLIN-TAZOB 3.375GM 100 ML IV SCH ×2 (05:58→13:14)
[2020-05-09] MEDS: FERROUS SULFATE 325 MG TAB PO SCH (08:21)
[2020-05-09] MEDS: Ensure HIGH Protein Chocolate 8oz Bottle PO SCH ×2 (08:21→12:00)
--- NOTE | 2020-05-09 08:51 | NUR ---
D/C Planning Regarding social service consult for SNF placement. Contact patient mother Marylin in regards of new order. Per Marylin she does not want her son to be place at a [facility] and would like him to return home with home health services. Marylin is requesting a wheelchair. Informed Marylin I will inform bedside nurse and in regards of the wheelchair patient health plan will review clinical information for criteria. Marylin is requesting for transportation to be arranged with [facility] upon d/c day. Marylin verbalize understanding d/c plan. Informed LIAM Cabrales patient family would like patient to return home. Per Samra she will update order to home health, physical therapy, nurse aide, wheelchair.
--- NOTE | 2020-05-09 08:51 | NUR ---
Per provider SS consult for SNF placement written at 10:56am on 05/08/20. Contacted Mother of patient at 8:30 am this morning for the second time and she remains adamant that she does not want placement for patient.
[2020-05-09 09:00] VITALS: BP_SYST 106; BP_SYST 97; BP_DIAS 51; BP_DIAS 61
--- NOTE | 2020-05-09 09:40 | NUR ---
0940 05/09/20 - Faxed to [facility] at [phone] face sheet, order for DME, H/P requesting authorization. Pending review, approved authorization and delivery of DME.
[2020-05-09] MEDS: ENOXAPARIN SOD 100 MG/1 ML SYRINGE SC SCH (10:05)
[2020-05-09] MEDS: levETIRAcetam 500 MG TAB PO SCH (10:05)
[2020-05-09] MEDS: ASCORBIC ACID 500 MG TAB PO SCH (10:05)
[2020-05-09] MEDS: ZINC SULFATE 220mg CAP or TAB PO SCH (10:05)
--- NOTE | 2020-05-09 12:00 | NUR ---
D/C planning Regarding social service consult for home health physical therapy, nurse aide and wheelchair. Faxed updated order to [facility] health. Faxed clinical information to [facility] for the wheelchair. Per Katie with [facility] they will deliver the wheelchair to home. Faxed transportation form request to [facility] requesting for a 16:30. Per Christen with [facility] transportation has been arranged with [employer] [phone] via [employer] with a 16:30 oyster picker time. Informed LIAM Cabrales.
[2020-05-09 12:49] VITALS: BP 113/61
[2020-05-09] MEDS ORDERED: APIX2.5T PO (13:18)
[2020-05-09 17:00] VITALS: BP 129/67
--- NOTE | 2020-05-09 17:15 | NUR ---
Discharge Went over all discharge paperwork with patient. Answered all questions. Medications brought up by [facility] and given to patient. No co-pay required. Removed IV intact, no problems. No telemetry, MST patient. Patient was picked up by transportation on a gurney and taken home with all personal belongings. [facility] providing W/C per Suzan.
[2020-05-09] MEDS ORDERED: APIXABAN 2.5 MG TAB PO SCH (22:00)
== END 2020-05-09 17:10 | disposition home health service (06) | DRG 308 ==
LOC: ER 20:54 → EDBD 20:54 → OVERFLOW 20:55 → WEST WING 04-28 03:43
PROVIDERS: ADMIT Hospitalist; ATTEND Internal Medicine
PROC: 0QS634Z Reposition Right Upper Femur with Internal Fixation Device, Percutaneous Approach (ICD-10-PCS; principal; 2020-05-01 14:30)
DX: S72.141A Displaced intertrochanteric fracture of right femur, initial encounter for closed fracture (principal); J96.01 Acute respiratory failure with hypoxia; J18.9 Pneumonia, unspecified organism; G40.909 Epilepsy, unspecified, not intractable, without status epilepticus; E87.6 Hypokalemia; Z20.828 Contact with and (suspected) exposure to other viral communicable diseases; W18.39XA Other fall on same level, initial encounter; Y93.89 Activity, other specified; Y92.89 Other specified places as the place of occurrence of the external cause; Y99.8 Other external cause status; Z82.49 Family history of ischemic heart disease and other diseases of the circulatory system
CPT/HCPCS: 36415; 71045; 71250; 72192; 73502; 76000; 80048; 80053; 80061; 81001; 82728; 83615; 83735; 83880; 85014; 85018; 85025; 85379; 85610; 85652; 85730; 86141; 86703; 86738; 86850; 86900; 86901; 87040; 87070; 87081; 87205; 87278; 93970; 97116; 97530; A4565; C1713; G0378; J0330; J0690; J0696; J1100; J1956; J2001; J2250; J2405; J2543; J2704; J3490; J7060